=== PATIENT | female | born 1955 | race Hispanic/Latino ===

== ENCOUNTER → 2019-10-16 | Day surgery (SDC) | payer MEDICARE, OTHER ==
[2019-10-12 13:28] LABS: BASOPHILS % 0.5 % (0.0-1.0); EOSINOPHILS # (AUTO) 0.4 (0.0-0.4); EOSINOPHILS % 5.4 % (0.0-6.0); HEMATOCRIT 33.4 % (34.2-44.1); HEMOGLOBIN 10.9 g/dL (12.0-16.0); LYMPHOCYTES # (AUTO) 2.3 (1.0-3.2); LYMPHOCYTES % 28.7 % (18.0-39.1); MEAN CORPUSCULAR HEMOGLOBIN 28.8 pg (28-32); MEAN CORPUSCULAR HGB CONC 32.6 g/dL (31-35); MEAN CORPUSCULAR VOLUME 88.1 fL (81-99); MONOCYTES # (AUTO) 0.6 (0.2-0.8); MONOCYTES % 7.5 % (4.4-11.3); NEUTROPHILS # (AUTO) 4.6 (2.1-6.9); NEUTROPHILS % 57.8 % (38.7-80.0); PLATELET COUNT 218 x10e3/uL (140-360); RED BLOOD COUNT 3.79 x10e6/uL (3.6-5.1); RED CELL DISTRIBUTION WIDTH 12.7 % (11.7-14.4)
[~2019-10-16] MED LIST: CALCITRIOL0.25 MCG PO; ESCITALOPRAM OX20 MG PO; FENTANYL CITRATE/PF 100MCG/2 ML INJ ONE; FERROUS SULFAT325 MG PO; LANSOPRAZOLE30 MG PO; LEVEMIR100 UNIT/1 SC; LEVOTHYROXINE50 MCG PO; LIDOCAINE HCL 2% LOCAL INJ 5 ML SDV VIAL INJ ONE; MIDAZOLAM HCL 2 MG/2 ML VIAL ONE; MIDODRINE HCL5 MG PO; PROPOFOL IV EMULSION 10 MG/ML 20 ML VIAL ONE; ULTRAM 50MG50 MG PO
--- NOTE | 2019-10-16 07:15 | NUR ---
SPIRITUAL CARE - Pre-Surgery Assessment: Pt in bed. Pt's at bedside. Pt reported supportive attention from family and friends. Intervention: [employer]ist provided pastoral presence, hospitality, sympathetic listening, and prayer. Acquainted pt with availability of market news reporter while hospitalized. Outcome: Pt expressed appreciation for visit. No need for follow up indicated at this time. NORAH Mckeon Spiritual Care Department O: [phone]
[2019-10-16 09:15] VITALS: BP 110/59
--- NOTE | 2019-10-16 13:14 | Operative Report ---
DATE OF PROCEDURE: SURGEON: Jarrod Garcia MD NAME OF PROCEDURE: EGD. PREPROCEDURE DIAGNOSES: The patient has history of anemia, has gastric ulcers, here for followup EGD. DESCRIPTION OF PROCEDURE: After informed written consent, premedications with monitored anesthesia care, standard video Olympus gastroscope was introduced into the mouth, esophagus, stomach into the 2nd portion of the duodenum. There was some retained food seen in the body and fundus and also a little bit in the duodenum. The patient's position was moved and the stomach was evaluated. There were no residual gastric ulcers, but gastritis was noted in the antrum and body and biopsies were done. Small bowel appeared to be okay and normal. Major papilla was normal and biopsies were done to rule out any malabsorption since she was anemic. The esophagus was normal. IMPRESSION: 1. Gastritis. 2. Gastric ulcers, all healed up. 3. Some retained food in the stomach. RECOMMENDATION: Avoid aspirin, NSAID, low residue diet especially after 5:00 p.m. in the evening. GERD precautions. Follow up in the office in 2 to 3 weeks and accordingly we will proceed with workup of anemia as indicated. Jarrod Garcia MD SR/MODL /[id number]
== END | disposition home or self-care (01) ==
LOC: OR 06:09
PROVIDERS: ATTEND Internal Medicine Gastroenterology
DX: K25.9 Gastric ulcer, unspecified as acute or chronic, without hemorrhage or perforation (principal); K29.50 Unspecified chronic gastritis without bleeding; K31.89 Other diseases of stomach and duodenum; C50.919 Malignant neoplasm of unspecified site of unspecified female breast; D64.9 Anemia, unspecified; R56.9 Unspecified convulsions; E11.9 Type 2 diabetes mellitus without complications; E03.9 Hypothyroidism, unspecified; R55 Syncope and collapse; M62.81 Muscle weakness (generalized); Z88.8 Allergy status to other drugs, medicaments and biological substances; Z01.810 Encounter for preprocedural cardiovascular examination; Z01.812 Encounter for preprocedural laboratory examination; Z11.59 Encounter for screening for other viral diseases; Z79.4 Long term (current) use of insulin; Z87.891 Personal history of nicotine dependence
CPT/HCPCS: 36415 ×2; 43239; 82948; 85025; 87635; 88305; 88312; 93005; J2001; J2250; J2704; J3010